=== PATIENT | female | born 1955 | race Caucasian/White ===

== ENCOUNTER 2023-08-22 13:01 | Outpatient (RCR) | payer MEDICARE, OTHER | END 2023-08-24 | disposition home or self-care (01) | LOC: ONC 13:01 | PROVIDERS: ATTEND Radiology Radiation Oncology | DX: Z51.0 Encounter for antineoplastic radiation therapy (principal); C50.312 Malignant neoplasm of lower-inner quadrant of left female breast | CPT/HCPCS: 77290; 77295; 77300; 77334; 99205 ==